=== PATIENT | male | born 1980 ===

== ENCOUNTER 2018-05-30 11:00 | Emergency (ER) | payer SELFPAY ==
[2018-05-30 11:25] VITALS: BP 142/81; PULSE 86; RESP 18; TEMP 98; O2SAT 100
[2018-05-30 11:29] VITALS: BMI 30.7
[2018-05-30 12:11] LABS: BASO # 0.05 K/mm3 (0.0-2.0); BASO % 0.6 % (0.0-3.0); EOS # 0.1 (0.0-0.7); GRAN # 2.65 (1.4-6.5); GRAN % 33.6 % (50.0-68.0); HEMOGLOBIN 14.8 g/dL (14.0-18.0); LYMPH # 4.6 (1.2-3.4); LYMPH % 58.1 % (22.0-35.0); MEAN CELL VOLUME 95.2 fl (80.0-105.0); MEAN CORPUSCULAR HEMOGLOBIN 32.6 pg (25.0-35.0); MEAN CORPUSCULAR HGB CONC 34.3 g/dl (31.0-37.0); MEAN PLATELET VOLUME 8.4 fl (7.0-11.0); MONO # 0.5 (0.1-0.6); MONO % 6.7 % (1.0-6.0); RBC 4.54 10^6/uL (3.5-6.1); RED CELL DISTRIBUTION WIDTH 12.7 % (11.5-14.5); WHITE BLOOD COUNT 7.9 10^3/uL (4.5-11.0)
[2018-05-30 12:20] LABS: ALB/GLOB RATIO 1.1 (1.1-1.8); ALBUMIN 4.4 g/dL (3.0-4.8); ALT/SGPT 139 U/L (7-56); AST/SGOT 79 U/L (17-59); BLOOD UREA NITROGEN 9 mg/dL (7-21); GFR NON-AFRICAN AMERICAN > 60; INR 0.98; PARTIAL THROMBOPLASTIN TIME 27.1 Seconds (25.1-36.5); PROTHROMBIN TIME 11.3 SECONDS (9.4-12.5)
--- NOTE | 2018-05-30 13:36 | ED PDOC ---
Arrival/HPI - General Chief Complaint: Alcohol Ingestion Historian: Patient - History of Present Illness Narrative History of Present Illness (Text): 05/30/18 13:33 37yo male with history of alcohol abuse bib EMS for alcohol intoxication. Patient admitted drinking unknown amount of alcohol this morning. States he was picked up from the street. He denies any somatic complaint in ED. Past Medical History - Provider Review Nursing Documentation Reviewed: Yes - Psychiatric Hx Substance Use: No Family/Social History - Physician Review Nursing Documentation Reviewed: Yes Family/Social History: Unknown Family HX Smoking Status: Never Smoked Hx Alcohol Use: Yes Frequency of alcohol use: Daily Hx Substance Use: No Allergies/Home Meds Allergies/Adverse Reactions: Allergies No Known Allergies Allergy (Verified 05/30/18 11:44) Home Medications: Home Meds Medication Instructions Recorded Confirmed Unobtainable 05/30/18 05/30/18 Review of Systems - Review of Systems Systems not reviewed;Unavailable: Intoxicated Physical Exam - Physical Exam Physical Exam Limitations: Intoxication Vital Signs Reviewed: Yes Vital Signs Temp Pulse Resp BP Pulse Ox 05/30/18 11:00 98.0 F 86 18 142/81 100 Temperature: Afebrile Blood Pressure: Normal Pulse: Regular Respiratory Rate: Normal Appearance: Positive for: Well-Appearing, Non-Toxic, Comfortable Pain Distress: None Mental Status: Positive for: Alert and Oriented X 3 - Systems Exam Head: Present: Atraumatic, Normocephalic Pupils: Present: PERRL Extroacular Muscles: Present: EOMI Conjunctiva: Present: Normal Mouth: Present: Moist Mucous Membranes Neck: Present: Normal Range of Motion Respiratory/Chest: Present: Clear to Auscultation, Good Air Exchange. No: Respi ratory Distress, Accessory Muscle Use Cardiovascular: Present: Regular Rate and Rhythm, Normal S1, S2. No: Murmurs Abdomen: No: Tenderness, Distention, Peritoneal Signs Back: Present: Normal Inspection Upper Extremity: Present: Normal Inspection. No: Cyanosis, Edema Lower Extremity: Present: Normal Inspection. No: Edema Neurological: Present: GCS=15, CN II-XII Intact, Speech Normal Skin: Present: Warm, Dry, Normal Color. No: Rashes Psychiatric: Present: Alert, Oriented x 3, Normal Insight, Normal Concentration Medical Decision Making ED Course and Treatment: 05/30/18 13:36 PT presented to ED for alcohol intoxication. Alcohol level Labs Pt will be observe in ED for sobriety 05/30/18 15:13 PT slept comfortably in ED . he was hemodynamically stable He was observed in ED for few hours. Pt was ambulatory and had a steady gait without help in ED. He requested to be DC and was stable to be DC. He was DC home - Lab Interpretations Lab Results: 05/30/18 12:00 05/30/18 12:00 Lab Results 05/30/18 12:00: Alcohol, Quantitative 389 H* 05/30/18 12:00: PT 11.3, INR 0.98, APTT 27.1 05/30/18 12:00: Sodium 144, Potassium 4.2, Chloride 105, Carbon Dioxide 26, Anion Gap 18, BUN 9, Creatinine 0.7 L, Est GFR ( Amer) > 60, Est GFR (Non-Af Amer) > 60, Random Glucose 105, Calcium 9.0, Total Bilirubin 0.2, AST 79 H, ALT 139 H, Alkaline Phosphatase 51, Total Protein 8.3, Albumin 4.4, Globulin 3.9, Albumin/Globulin Ratio 1.1 05/30/18 12:00: WBC 7.9, RBC 4.54, Hgb 14.8, Hct 43.2, MCV 95.2, MCH 32.6, MCHC 34.3, RDW 12.7, Plt Count 322, MPV 8.4, Gran % 33.6 L, Lymph % (Auto) 58.1 H, [place] % (Auto) 6.7 H, Eos % (Auto) 1.0 L, Baso % (Auto) 0.6, Gran # 2.65, Lymph # (Auto) 4.6 H, [place] # (Auto) 0.5, Eos # (Auto) 0.1, Baso # (Auto) 0.05 Disposition/Present on Arrival - Present on Arrival Any Indicators Present on Arrival: No History of DVT/PE: No History of Uncontrolled Diabetes: No Urinary Catheter: No History of Decub. Ulcer: No History Surgical Site Infection Following: None - Disposition Have Diagnosis and Disposition been Completed?: Yes Diagnosis: Alcohol intoxication Disposition: HOME/ ROUTINE Disposition Time: 15:15 Patient Plan: Discharge Condition: STABLE Additional Instructions: Follow up with your doctor Stop taking alcohol and join AA Return to ED for any new or worsening symptoms Referrals: Alcoholics Anonymous [Outside] - Follow up with primary Forms: [employer] ([place]ian)
== END 2018-05-30 15:29 | disposition home or self-care (01) ==
LOC: ED 11:00
DX: F10.129 Alcohol abuse with intoxication, unspecified (principal); Y90.8 Blood alcohol level of 240 mg/100 ml or more
CPT/HCPCS: 80053; 85025; 85610; 85730; 99283; G0480